=== PATIENT | female | born 1995 | race Caucasian/White ===

== ENCOUNTER 2023-08-07 14:32 | Emergency (ER) | payer OTHER ==
[2023-08-07 14:38] VITALS: TEMP 98.6; BMI 31.9
[2023-08-07 14:56] VITALS: RESP 20
[2023-08-07] MEDS: SODIUM CHLORIDE 0.9% 500 ML INFUS.BAG IV ONE (15:22)
[2023-08-07 15:24] LABS: BASO % 0.8 % (0-2.0); EOS % 0.6 % (0-4.5); HEMATOCRIT 31.8 % (32.4-45.2); HEMOGLOBIN 11.4 GM/dL (10.7-15.3); LYMPH % 23.7 % (8-40); MCH 30.4 pg (25.7-33.7); MCHC 35.7 g/dl (32.0-36.0); MEAN CELL VOLUME 85.1 fl (80-96); MONO % 6.6 % (3.8-10.2); NEUT % 68.3 % (42.8-82.8); PLATELET COUNT 356 10^3/uL (134-434); RBC 3.74 M/mm3 (3.60-5.2); RDW 13.7 % (11.6-15.6); WHITE BLOOD COUNT 9.5 K/mm3 (4.0-10.0)
[2023-08-07 15:36] LABS: INR 1.04 (0.83-1.09)
[2023-08-07 16:07] LABS: POTASSIUM 3.9 mmol/L (3.5-5.1)
[2023-08-07 16:10] LABS: ALBUMIN 3.8 g/dl (3.4-5.0); BLOOD UREA NITROGEN 12.1 mg/dL (7-18); CALCIUM 9.3 mg/dL (8.5-10.1)
[2023-08-07 16:13] LABS: CREATININE 0.9 mg/dL (0.55-1.3)
[2023-08-07 16:16] LABS: BILIRUBIN,TOTAL 0.4 mg/dL (0.2-1); TOT PROT 7.2 g/dl (6.4-8.2)
[2023-08-07 16:35] VITALS: BP 107/61; PULSE 101
== END 2023-08-07 18:00 | disposition home or self-care (01) ==
LOC: JER 14:32
DX: N92.0 Excessive and frequent menstruation with regular cycle (principal); R06.82 Tachypnea, not elsewhere classified; R00.0 Tachycardia, unspecified; R53.1 Weakness
CPT/HCPCS: 36415; 80053; 84703; 85025; 85610; 86850; 86900; 86901; 99284-25